=== PATIENT | female | born 1980 | race Caucasian/White ===

== ENCOUNTER 2021-09-20 13:25 | Emergency (ER) | payer BC | END 2021-09-20 14:21 | disposition left against medical advice (07) | LOC: JD.ED 13:25 | DX: E11.65 Type 2 diabetes mellitus with hyperglycemia (principal); Z53.21 Procedure and treatment not carried out due to patient leaving prior to being seen by health care provider ==

== ENCOUNTER 2023-11-01 20:34 | Inpatient (IN) | payer BC ==
[2023-11-01 21:22] LABS: BASOPHILS ABSOLUTE AUTO 0.2 K/mm3 (0.0-0.2); BASOPHILS PERCENT AUTO 0.9 % (0.0-1.0); EOSINOPHILS ABSOLUTE AUTO 0.1 K/mm3 (0.0-0.4); EOSINOPHILS PERCENT AUTO 0.3 % (0.0-6.0); HEMOGLOBIN 16.7 gm/dl (12.0-16.0); IMMATURE GRAN PERCENT AUTO 0.6 % (0.0-0.4); LYMPHOCYTES PERCENT AUTO 18.7 % (24.0-44.0); MEAN CORPUSCULAR HEMOGLOBIN 30.5 pg (28.0-32.0); MEAN CORPUSCULAR HGB CONC 33.4 g/dl (32.0-36.0); MEAN CORPUSCULAR VOLUME 91.2 fl (83.0-99.0); MEAN PLATELET VOLUME 9.6 fl (9.4-12.3); MONOCYTES ABSOLUTE AUTO 1.2 K/mm3 (0.0-0.8); MONOCYTES PERCENT AUTO 7.3 % (0.0-8.0); NEUTROPHILS ABSOLUTE AUTO 11.6 K/mm3 (1.8-7.7); NEUTROPHILS PERCENT AUTO 72.2 % (41.0-71.0); PLATELET COUNT,PLT 385 K/mm3 (150-400); RED BLOOD CELL COUNT 5.48 M/mm3 (4.10-5.30)
[2023-11-01] MEDS: Sodium Chloride 0.9% 1,000 ML IV STA ×2 (21:37→22:32)
[2023-11-01] MEDS: Ondansetron 4 MG/2 ML SDV IVPUSH ONE (21:37)
[2023-11-01 21:47] LABS: A/G RATIO 1.2 (1-2); ALBUMIN 4.6 g/dl (3.4-5.0); ANION GAP 28.7 (5-15); BILIRUBIN TOTAL 0.8 mg/dL (0.2-1.0); BUN/CREATININE RATIO 18.9 (14-18); CREATININE 0.9 mg/dL (0.55-1.02); EST CRCL DRUG DOSING (CG) 68.16 mL/min; POTASSIUM,K 4.7 mEq/L (3.5-5.1); PROTEIN TOTAL,TP 8.3 g/dl (6.4-8.2)
[2023-11-01 21:58] LABS: APPEARANCE,URINE CLEAR (Clear); BILIRUBIN,URINE NEGATIVE (Negative); COLOR,URINE YELLOW (Yellow); GLUCOSE,URINE 2+ (Negative); KETONES,URINE 4+ (Negative); LEUKOCYTE ESTERASE,URINE NEGATIVE (Negative); NITRITE,URINE NEGATIVE (Negative); OCCULT BLOOD,URINE NEGATIVE (Negative); PH,URINE 5.5 (5.0-8.0); PROTEIN,URINE NEGATIVE (Negative); UROBILINOGEN,URINE 0.2 (0.2-1.0)
[2023-11-01] MEDS: Iopamidol 755 Mg/ML 100 ML Bottle IVPUSH ONE (22:31)
[2023-11-01] MEDS: Sodium Chloride 0.9% 10 ML Syringe FLUSH PRN (22:33)
[2023-11-01 22:50] LABS: CORONAVIRUS COVID-19 NAA NEGATIVE (NEGATIVE); INFLUENZA A NAA NEGATIVE (NEGATIVE); RESPIRATORY SYNCYTIAL VIR NAA NEGATIVE (NEGATIVE)
[2023-11-01] MEDS: Metoclopramide 10 MG/2 ML SDV IVPUSH ONE (23:03)
[2023-11-01] MEDS: Dextrose 5%-0.45% NaCl 1,000 ML IV SCH (23:03)
[2023-11-01 23:13] LABS: PCO2 ARTERIAL 17.1 mmHg (35.0-45.0)
[2023-11-01 23:14] LABS: BASE EXCESS ARTERIAL 18.9 (-2-2.0); BICARBONATE,ARTERIAL 7.1 meq/L (22.0-26.0)
[2023-11-01] MEDS: Insulin Regular in 0.9 % NACL 100 ML IV SCH (23:14)
[2023-11-01] MEDS: HYDROmorphone 0.5 MG/0.5 ML Syringe IVPUSH ONE (23:50)
[2023-11-02 01:35] LABS: ANION GAP 25.3 (5-15); BUN/CREATININE RATIO 22.5 (14-18); CALCIUM 8.3 mg/dL (8.5-10.1); CREATININE 0.8 mg/dL (0.55-1.02); EST CRCL DRUG DOSING (CG) 76.68 mL/min; POTASSIUM,K 4.3 mEq/L (3.5-5.1)
[2023-11-02] MEDS: 50% Dextrose in Water 50 ML Syringe IVPUSH ONE (03:40)
[2023-11-02] MEDS: Dextrose 5%-0.45% NaCl 1,000 ML IV SCH (04:41)
[2023-11-02 05:43] LABS: ANION GAP 15.8 (5-15); BUN/CREATININE RATIO 15.6 (14-18); CREATININE 0.9 mg/dL (0.55-1.02); POTASSIUM,K 3.8 mEq/L (3.5-5.1)
[2023-11-02 05:44] LABS: CALCIUM 7.8 mg/dL (8.5-10.1); EST CRCL DRUG DOSING (CG) 68.16 mL/min
[2023-11-02] MEDS: Acetaminophen 325 MG Tab PO PRN (06:27)
[2023-11-02] MEDS ORDERED: Ondansetron 4 MG/2 ML SDV IV PRN (06:29)
[2023-11-02] MEDS: Sodium Chloride 0.9% 500 ML IV ONE (07:10)
[2023-11-02 07:21] LABS: ANION GAP 16.9 (5-15); BUN/CREATININE RATIO 14.4 (14-18); CALCIUM 7.9 mg/dL (8.5-10.1); CREATININE 0.9 mg/dL (0.55-1.02); EST CRCL DRUG DOSING (CG) 59.57 mL/min; POTASSIUM,K 3.9 mEq/L (3.5-5.1)
[2023-11-02] MEDS: Potassium Chloride 10 MEQ in Premix Bag 1 BAG IV SCH (08:51)
[2023-11-02] MEDS: Enoxaparin 40 MG/0.4 ML Syringe SUBCUT SCH (08:52)
[2023-11-02 11:08] LABS: BUN/CREATININE RATIO 12.9 (14-18); CALCIUM 7.8 mg/dL (8.5-10.1); CREATININE 0.7 mg/dL (0.55-1.02); EST CRCL DRUG DOSING (CG) 76.58 mL/min
[2023-11-02 15:11] LABS: BUN/CREATININE RATIO 8.8 (14-18); CALCIUM 7.4 mg/dL (8.5-10.1); CREATININE 0.8 mg/dL (0.55-1.02); EST CRCL DRUG DOSING (CG) 67.01 mL/min
[2023-11-02] MEDS: Insulin Glargine,Human Rec. Analog 100 Units/ML 3 ML Pen SUBCUT SCH (15:43)
[2023-11-02] MEDS: Insulin Lispro 100 Unit/ML 3 ML KwikPen SUBCUT SCH (17:50)
[2023-11-03 05:18] LABS: ANION GAP 15.9 (5-15); BUN/CREATININE RATIO 4.3 (14-18); CREATININE 0.7 mg/dL (0.55-1.02); EST CRCL DRUG DOSING (CG) 76.58 mL/min; POTASSIUM,K 3.9 mEq/L (3.5-5.1)
[2023-11-03 12:50] VITALS: BP 107/44; PULSE 94
== END 2023-11-03 12:40 | disposition home or self-care (01) | DRG 420 ==
LOC: JD.ED 20:34 → JD.ICU 11-02 05:01
PROVIDERS: ADMIT Internal Medicine; ATTEND Internal Medicine
DX: E10.10 Type 1 diabetes mellitus with ketoacidosis without coma (principal); E87.5 Hyperkalemia; E83.42 Hypomagnesemia; E78.5 Hyperlipidemia, unspecified; F17.210 Nicotine dependence, cigarettes, uncomplicated; Z79.4 Long term (current) use of insulin; Z79.84 Long term (current) use of oral hypoglycemic drugs; Z79.899 Other long term (current) drug therapy
CPT/HCPCS: 0241U; 36415; 36600; 71275; 71275-26; 74177; 74177-26; 80048; 80053; 81003; 82803; 82947; 83690; 84703; 85025; 86140; 93005; A9270-GY; J1170; J1650; J1815; J1815-GY; J2405; J2765; J3480; J3490; J7030; J7799; Q9967